=== PATIENT | female | born 1965 | race Caucasian/White ===

== ENCOUNTER 2017-03-14 06:55 | Day surgery (SDC) | payer BC ==
[~2017-03-14] VITALS: Ht 152.4 cm; Wt 73.9 kg
[~2017-03-14 06:55] MED LIST: CYCL5TAB PO; LIDOCAINE 1% (10mg/ml) 2ml SDV INJ ONE; LR 1,000 ML IV SCH; MELO-273 PO; TRAM50TA4 PO
--- OUTSIDE RECORDS SUMMARY | 2017-03-14 07:00 | XMS REPORT | Continuity of Care Document ---
Author Author Conrado COX, Geoffrey THOMAS Organization Ambulatory Address [address] [place] [address] [place] [address] Phone Care Team Providers Care Operater Name Role Phone Uche Gutierrez PP Unavailable Payers Payer name Insurance type Covered democrat ID Authorization(s) Unknown Problems Condition Effective Dates (start - stop) Clinical Status Constipation, unspecified - Improved Perimenopause - *Stable Well woman exam with routine gynecological exam - *Stable Unspecified sinusitis (chronic) - *Chronic Cough - *Chronic Sinusitis - *Chronic Sinusitis, Acute - *Acute Upper Respiratory Infection, Acute - *Acute Sinusitis, Acute - *Acute Allergic rhinitis, cause unspecified - Acute Exacerbation Constipation - *Chronic Dysuria - *Acute Other malaise and fatigue - *Acute Chronic rhinitis - *Chronic Family History Family Member Diagnosis Age At Onset Status Unknown Social History Social History Element Description Quantity Unknown Allergies, Adverse Reactions, Alerts Substance Reaction Severity Status Unknown Medications Medication Instructions Dosage Effective Dates (start - stop) Status Unknown Immunizations Vaccine Date Status Comments MMR completed - Completed reason: source unspecified Td (adult) completed - Completed reason: source unspecified Results Test Name Date and Time Measure Units Reference Range Abnormal Flag Comments Unknown Vital Signs Date / Time: Height Weight Pulse Rate Blood Pressure Temperature /13:04:00 61.00 in 172.00 lbs 118/76 mm[Hg] 97.8 F Procedures Procedure Date Unknown Encounters Encounter Location Date Patient Visit [facility] FM Patient Visit [facility] New OB Patient Visit [facility] Patient Visit [facility] Patient Visit [facility] Patient Visit [facility] Patient Visit [facility] Patient Visit Patient Visit [facility] Advance Directives Directive Effective Date Unknown
--- OUTSIDE RECORDS SUMMARY | 2017-03-14 07:00 | XMS REPORT | Referral Summary ---
Author Author [facility] Organization [facility] Address Unknown Phone Unavailable Care Team Providers Care Vice President Network Development Name Role Phone Helena Gutierrez Primary Care Physician [phone] Encounter [facility] [id number] Date(s): 06/05/15 - 06/05/15 [facility] [address] [address] ALINA Jones [id number] Discharge Diagnosis: Undifferentiated connective tissue disease Discharge Diagnosis: Encounter for long-term (current) use of non-steroidal anti -inflammatories Discharge Disposition: 01-Home or Self Care Attending Physician: Ariela Pearson MD Admitting Physician: Ariela Pearson MD Referring Physician: Uche Gutierrez MD Vital Signs Most recent to 1 oldest [Reference Range]: Peripheral Pulse 65 bpm Rate [60-100 bpm] (06/05/15 11:09 AM) Blood Pressure 137/86 mmHg [90-140/60-90 mmHg] (06/05/15 11:09 AM) Problem List Condition Effective Dates Status Health Status Informant Obesity(Confirmed) Active patient Sinus Active infections(Confirmed ) Undifferentiated Active connective tissue disease(Confirmed) Allergies, Adverse Reactions, Alerts No Known Medication Allergies Medications Mobic 7.5 mg oral tablet 1 tabs, Oral, BID, with food., # 60 tabs, 5 Refill(s), Pharmacy: [facility] #[id number], 1 tabs Oral BID,Instr:with food. Start Date: 12/19/14 Status: Ordered Results No data available for this section Immunizations Vaccine Date Refusal Reason tetanus/diphth/pertuss (Tdap) adult/adol 08/30/14 influenza virus vaccine, inactivated 08/30/14 measles/mumps/rubella virus vaccine 05/09/06 tetanus-diphth toxoids (Td) adult/adol 11/10/94 Procedures Procedure Date Related Diagnosis Body Site bunion corrective surgery Hernia repair Social History Social History Type Response Smoking Status Never smoker Assessment and Plan Extracted from: Title: Office Visit Note Author: Ariela Pearson MD Date: 06/05/15 Assessment/Plan 1.Undifferentiated connective tissue disease She is overall doing well. I discussed that she can take the meloxicam as needed. I reviewed potential use ofhydroxychloroquineifwe need to escalate her therapy. I reviewed the potential risks which may occur in association this medication including retinal toxicity. She does not believe that she needs to escalate therapy at this time. She willlet us know if she has any increased issues. 2.Encounter for long-term (current) use of non-steroidal anti-inflammatories Her labs have been stable. I will plan on repeating these when she is next seen in 6 months. Follow-up in 6 months or sooner if needed.
--- OUTSIDE RECORDS SUMMARY | 2017-03-14 07:00 | XMS REPORT | Referral Summary ---
Author Author [facility] Organization [facility] Address Unknown Phone Unavailable Care Team Providers Care Factory Maintenance Technician Name Role Phone Helena Gutierrez Primary Care Physician [phone] Encounter [facility] Date(s): 06/05/15 - 06/05/15 [facility] [address] [place] [address] ALINA Jones [id number] Discharge Diagnosis: Undifferentiated connective tissue disease Discharge [...] food., # 60 tabs, 5 Refill(s), Pharmacy: [facility] #[id number], 1 tabs Oral BID,Instr:with food. Start Date: [...]
--- OUTSIDE RECORDS SUMMARY | 2017-03-14 07:00 | XMS REPORT | Referral Summary ---
Author Author [facility] Organization [facility] Address Unknown Phone Unavailable Care Team Providers Care Supervisor Coffee Name Role Phone Helena Gutierrez Primary Care Physician [phone] Encounter [facility] Date(s): 06/05/15 - 06/05/15 [facility] [address] [place] [address] ALINA Jones [id number] Discharge Diagnosis: Undifferentiated connective tissue disease Discharge [...] food., # 60 tabs, 5 Refill(s), Pharmacy: [facility] #[id number], 1 tabs Oral BID,Instr:with food. Start Date: [...]
--- OUTSIDE RECORDS SUMMARY | 2017-03-14 07:00 | XMS REPORT | Referral Summary ---
Author Author [facility] Organization [facility] Address Unknown Phone Unavailable Care Team Providers Care Analog Ic Design Architect Name Role Phone Helena Gutierrez Primary Care Physician [phone] Encounter [facility] [id number] Date(s): 12/26/15 - 12/26/15 [facility] [address] [place] [address] ALINA Jones [id number] Discharge Diagnosis: Undifferentiated connective tissue disease Discharge Diagnosis: Patient takes NSAID (non-steroid anti-inflammatory drug) Discharge Disposition: 01-Home or Self Care Attending Physician: Ariela Pearson MD Admitting Physician: Ariela Pearson MD Referring Physician: Uche Gutierrez MD Vital Signs Most recent to 1 oldest [Reference Range]: Peripheral Pulse 71 bpm Rate [60-100 bpm] (12/26/15 9:26 AM) Blood Pressure 124/80 mmHg [90-140/60-90 mmHg] (12/26/15 9:26 AM) Problem List Condition Effective Dates Status Health Status Informant Obesity(Confirmed) Active patient Sinus Active infections(Confirmed ) Undifferentiated Active connective tissue disease(Confirmed) Allergies, Adverse Reactions, Alerts No Known Medication Allergies Medications Mobic 7.5 mg oral tablet 7.5 mg 1 tabs, Oral, BID, with food., # 60 tabs, 5 Refill(s), Pharmacy: [facility] #[id number], 1 tabs Oral BID,Instr:with food. Start Date: 12/26/15 Status: Ordered Results Hematology Most recent to 1 oldest [Reference Range]: WBC [4.8-10.8 4.9 10*3/uL 10*3/uL] (12/26/15 9:10 AM) RBC [4.00-5.20] 4.44 (12/26/15 9:10 AM) Hgb [12.0-16.0 13.8 gm/dL gm/dL] (12/26/15 9:10 AM) Hct [37.0-47.0 %] 41.3 % (12/26/15 9:10 AM) MCV [82.0-99.0 fL] 93.0 fL (12/26/15 9:10 AM) MCH [27.0-32.0 pg] 31.1 pg (12/26/15 9:10 AM) MCHC [32.0-36.0 33.4 gm/dL gm/dL] (12/26/15 9:10 AM) RDW [11.5-14.5 %] 12.5 % (12/26/15 9:10 AM) Platelet [150-400 373 10*3/uL 10*3/uL] (12/26/15 9:10 AM) MPV [8.8-14.8 fL] 9.2 fL (12/26/15 9:10 AM) Immature 0.2 % Granulocytes (12/26/15 9:10 AM) [0.0-1.0 %] Neutrophils [51-75 55 % %] (12/26/15 9:10 AM) Lymphocytes [20-46 30 % %] (12/26/15 9:10 AM) Monocytes [4-11 %] 9 % (12/26/15 9:10 AM) Eosinophils [0-4 %] 5 % *HI* (12/26/15 9:10 AM) Basophils [0-2 %] 1 % (12/26/15 9:10 AM) Neutro Absolute 2.70 10*3 [1.90-7.00 10*3] (12/26/15 9:10 AM) Lymph Absolute 1.47 10*3 [0.80-3.30 10*3] (12/26/15 9:10 AM) Orange Absolute 0.44 10*3 [0.30-1.00 10*3] (12/26/15 9:10 AM) Eos Absolute 0.23 10*3 [0.00-0.50 10*3] (12/26/15 9:10 AM) Baso Absolute 0.06 10*3 [0.00-0.20 10*3] (12/26/15 9:10 AM) Chemistry Most recent to 1 oldest [Reference Range]: Sodium Lvl [135-144 141 mEq/L mEq/L] (12/26/15 9:10 AM) Potassium Lvl 4.3 mEq/L [3.5-5.2 mEq/L] (12/26/15 9:10 AM) Chloride [99-111 105 mEq/L mEq/L] (12/26/15 9:10 AM) CO2 [22-31 mEq/L] 28 mEq/L (12/26/15 9:10 AM) AGAP [3-20] 8 (12/26/15 9:10 AM) BUN [10-20 mg/dL] 15 mg/dL (12/26/15 9:10 AM) Glucose Lvl [70-99 54 mg/dL mg/dL] *LOW* (12/26/15 9:10 AM) Creatinine Lvl 0.65 mg/dL [0.57-1.11 mg/dL] (12/26/15 9:10 AM) eGFR [>60 mL/min] >60 mL/min 1 (12/26/15 9:10 AM) Calcium Lvl 9.5 mg/dL [8.9-10.5 mg/dL] (12/26/15 9:10 AM) Albumin Lvl [3.5-5.0 4.2 gm/dL gm/dL] (12/26/15 9:10 AM) Total Protein 6.6 gm/dL [6.4-8.3 gm/dL] (12/26/15 9:10 AM) Globulin [1.8-4.0 2.4 gm/dL gm/dL] (12/26/15 9:10 AM) ALT [0-55 U/L] 20 U/L (12/26/15 9:10 AM) AST [5-34 U/L] 20 U/L (12/26/15 9:10 AM) Alk Phos [40-150 95 U/L U/L] (12/26/15 9:10 AM) Bili Total [0.2-1.2 0.5 mg/dL mg/dL] (12/26/15 9:10 AM) 1Result Comment: Multiply eGFR results by 1.21 for race. Immunizations Vaccine Date Refusal Reason tetanus/diphth/pertuss (Tdap) adult/adol 08/30/14 influenza virus vaccine, inactivated 08/30/14 measles/mumps/rubella virus vaccine 05/09/06 tetanus-diphth toxoids (Td) adult/adol 11/10/94 Procedures Procedure Date Related Diagnosis Body Site Collection of venous blood by venipuncture 12/26/15 bunion corrective surgery Hernia repair Social History Social History Type Response Smoking Status Never smoker Assessment and Plan Extracted from: Title: Office Visit Note Author: Ariela Pearson MD Date: 12/26/15 Assessment/Plan 1.Undifferentiated connective tissue disease She has mild joint stiffness in the morning but otherwise she has been doing well. I will check her kidney, blood counts for monitoring and we will continue the meloxicam. Ordered: C-Reactive Protein (CRP) CBC w/ Differential Comprehensive Metabolic Panel 2.Patient takes NSAID (non-steroid anti-inflammatory drug) I will check liver tests, kidney tests and blood counts at this time. Follow up in 6 mths or sooner if needed. Ordered: C-Reactive Protein (CRP) CBC w/ Differential Comprehensive Metabolic Panel
--- OUTSIDE RECORDS SUMMARY | 2017-03-14 07:00 | XMS REPORT | Referral Summary ---
Author Author [facility] Organization [facility] Address Unknown Phone Unavailable Care Team Providers Care Certified Adaptive Physical Educator Name Role Phone Helena Gutierrez Primary Care Physician [phone] Encounter [facility] [id number] Date(s): 12/24/16 - 12/24/16 [facility] [address] [place] [address] [place] Jones [id number] Discharge Diagnosis: Patient takes NSAID (non-steroid anti-inflammatory drug) Discharge Diagnosis: Lower back pain Discharge Diagnosis: Undifferentiated connective tissue disease Discharge Disposition: 01-Home or Self Care Attending Physician: Ariela Pearson MD Admitting Physician: Ariela Pearson MD Referring Physician: Uche Gutierrez MD Vital Signs Most recent to 1 oldest [Reference Range]: Peripheral Pulse 62 bpm Rate [60-100 bpm] (12/24/16 10:02 AM) Blood Pressure 149/83 mmHg [90-140/60-90 mmHg] *HI* (12/24/16 10:02 AM) Problem List Condition Effective Dates Status Health Status Informant Obesity(Confirmed) Active patient Sinus Active infections(Confirmed ) Undifferentiated Active connective tissue disease(Confirmed) Allergies, Adverse Reactions, Alerts No Known Medication Allergies Medications Mobic 7.5 mg oral tablet 7.5 mg 1 tabs, Oral, BID, with food., # 60 tabs, 5 Refill(s), Pharmacy: [id number], 1 tabs Oral BID,Instr:with food. Start Date: 12/24/16 Status: Ordered traMADol 50 mg oral tablet 50 mg 1 tabs, Oral, BID, as needed for pain, # 60 tabs, 2 Refill(s) Start Date: 12/24/16 Stop Date: 12/17/19 Status: Ordered Results Hematology Most recent to 1 oldest [Reference Range]: WBC [4.8-10.8 5.3 10*3/uL 10*3/uL] (12/24/16 10:25 AM) RBC [4.00-5.20] 4.29 (12/24/16 10:25 AM) Hgb [12.0-16.0 13.2 gm/dL gm/dL] (12/24/16 10:25 AM) Hct [37.0-47.0 %] 40.6 % (12/24/16 10:25 AM) MCV [82.0-99.0 fL] 94.6 fL (12/24/16 10:25 AM) MCH [27.0-32.0 pg] 30.8 pg (12/24/16 10:25 AM) MCHC [32.0-36.0 32.5 gm/dL gm/dL] (12/24/16 10:25 AM) RDW [11.5-14.5 %] 12.0 % (12/24/16 10:25 AM) Platelet [150-400 338 10*3/uL 10*3/uL] (12/24/16 10:25 AM) MPV [8.8-14.8 fL] 9.2 fL (12/24/16 10:25 AM) Immature 0.2 % Granulocytes (12/24/16 10:25 AM) [0.0-1.0 %] Neutrophils [51-75 52 % %] (12/24/16 10:25 AM) Lymphocytes [20-46 32 % %] (12/24/16 10:25 AM) Monocytes [4-11 %] 10 % (12/24/16 10:25 AM) Eosinophils [0-4 %] 5 % *HI* (12/24/16 10:25 AM) Basophils [0-2 %] 1 % (12/24/16 10:25 AM) Neutro Absolute 2.74 [1.90-7.00] (12/24/16 10:25 AM) Lymph Absolute 1.67 [0.80-3.30] (12/24/16 10:25 AM) Andrews Absolute 0.53 [0.30-1.00] (12/24/16 10:25 AM) Eos Absolute 0.28 [0.00-0.50] (12/24/16 10:25 AM) Baso Absolute 0.05 [0.00-0.20] (12/24/16 10:25 AM) Chemistry Most recent to 1 oldest [Reference Range]: Sodium Lvl [135-144 139 mEq/L mEq/L] (12/24/16 10:25 AM) Potassium Lvl 4.3 mEq/L [3.5-5.2 mEq/L] (12/24/16 10:25 AM) Chloride [99-111 104 mEq/L mEq/L] (12/24/16 10:25 AM) CO2 [22-31 mEq/L] 27 mEq/L (12/24/16 10:25 AM) AGAP [3-20] 8 (12/24/16 10:25 AM) BUN [10-20 mg/dL] 15 mg/dL (12/24/16 10:25 AM) Glucose Lvl [70-99 80 mg/dL mg/dL] (12/24/16 10:25 AM) Creatinine Lvl 0.63 mg/dL [0.57-1.11 mg/dL] (12/24/16 10:25 AM) eGFR [>60 mL/min] >60 mL/min 1 (12/24/16 10:25 AM) Calcium Lvl 9.2 mg/dL [8.9-10.5 mg/dL] (12/24/16 10:25 AM) Albumin Lvl [3.5-5.0 4.2 gm/dL gm/dL] (12/24/16 10:25 AM) Total Protein 6.2 gm/dL [6.1-7.7 gm/dL] (12/24/16 10:25 AM) Globulin [1.8-4.0 2.0 gm/dL gm/dL] (12/24/16 10:25 AM) ALT [0-55 U/L] 17 U/L (12/24/16 10:25 AM) AST [5-34 U/L] 18 U/L (12/24/16 10:25 AM) Alk Phos [40-150 75 U/L U/L] (12/24/16 10:25 AM) Bili Total [0.2-1.2 0.6 mg/dL mg/dL] (12/24/16 10:25 AM) 1Result Comment: Multiply eGFR results by 1.21 for race. Urinalysis Most recent to 1 oldest [Reference Range]: UA Color Yellow (12/24/16 10:30 AM) UA Appear Clear (12/24/16 10:30 AM) UA pH [5.0-8.0] 7.5 (12/24/16 10:30 AM) UA Leuk Est Negative [Negative] (12/24/16 10:30 AM) UA Nitrite Negative [Negative] (12/24/16 10:30 AM) UA Protein Negative [Negative] (12/24/16 10:30 AM) UA Glucose Negative [Negative] (12/24/16 10:30 AM) UA Ketones Negative [Negative] (12/24/16 10:30 AM) UA Urobilinogen 0.2 mg/dL [<1.0 mg/dL] (12/24/16 10:30 AM) UA Bili [Negative] Negative (12/24/16 10:30 AM) UA Blood [Negative] Negative (12/24/16 10:30 AM) UA Spec Grav 1.009 [1.003-1.030] (12/24/16 10:30 AM) Type Clean Catch (12/24/16 10:30 AM) Immunizations Given and Recorded Vaccine Date Status Refusal Reason tetanus/diphth/pertuss (Tdap) adult/adol 08/30/14 Given influenza virus vaccine, inactivated 08/30/14 Recorded measles/mumps/rubella virus vaccine 05/09/06 Given tetanus-diphth toxoids (Td) adult/adol 11/10/94 Given Procedures Procedure Date Related Diagnosis Body Site Collection of venous blood by venipuncture 12/24/16 bunion corrective surgery Hernia repair Social History Social History Type Response Smoking Status Never smoker Assessment and Plan Extracted from: Title: Ambulatory Patient Education Author: Ariela Pearson MD Date: Musculoskeletal Back Injury Prevention Back injuries can be very painful. They can also be difficult to heal. After having one back injury, you are more likely to injure your back again. It is important to learn how to avoid injuring or re-injuring your back. The following tips can help you to prevent a back injury. WHAT SHOULD I KNOW ABOUT PHYSICAL FITNESS? Exercise for 30 minutes per day on most days of the week or as told by your doctor. Make sure to: Do aerobic exercises, such as walking, jogging, biking, or swimming. Do exercises that increase balance and strength, such as josselyn chi and yoga. Do stretching exercises. This helps with flexibility. Try to develop strong belly (abdominal) muscles. Your belly muscles help to support your back. Stay at a healthy weight. This helps to decrease your risk of a back injury. WHAT SHOULD I KNOW ABOUT MY DIET? Talk with your doctor about your overall diet. Take supplements and vitamins only as told by your doctor. Talk with your doctor about how much calcium and vitamin D you need each day. These nutrients help to prevent weakening of the bones (osteoporosis). Include good sources of calcium in your diet, such as: Dairy products. Green leafy vegetables. Products that have had calcium added to them (fortified). Include good sources of vitamin D in your diet, such as: Milk. Foods that have had vitamin D added to them. WHAT SHOULD I KNOW ABOUT MY POSTURE? Sit up straight and stand up straight. Avoid leaning forward when you sit or hunching over when you stand. Choose chairs that have good low-back (lumbar) support. If you work at a desk, sit close to it so you do not need to lean over. Keep your chin tucked in. Keep your neck drawn back. Keep your elbows bent so your arms look like the letter "L" (right angle). Sit high and close to the steering wheel when you drive. Add a low-back support to your car seat, if needed. Avoid sitting or standing in one position for very long. Take breaks to get up, stretch, and walk around at least one time every hour. Take breaks every hour if you are driving for long periods of time. Sleep on your side with your knees slightly bent, or sleep on your back with a pillow under your knees. Do not lie on the front of your body to sleep. WHAT SHOULD I KNOW ABOUT LIFTING, TWISTING, AND REACHING Lifting and Heavy Lifting Avoid heavy lifting, especially lifting over and over again. If you must do heavy lifting: Stretch before lifting. Work slowly. Rest between lifts. Use a tool such as a cart or a vinod to move objects if one is available. Make several small trips instead of carrying one heavy load. Ask for help when you need it, especially when moving big objects. Follow these steps when lifting: Stand with your feet shoulder-width apart. Get as close to the object as you can. Do not picker operator a heavy object that is far from your body. Use handles or lifting straps if they are available. Bend at your knees. Squat down, but keep your heels off the floor. Keep your shoulders back. Keep your chin tucked in. Keep your back straight. Lift the object slowly while you tighten the muscles in your legs, belly , and butt. Keep the object as close to the center of your body as possible. Follow these steps when putting down a heavy load: Stand with your feet shoulder-width apart. Lower the object slowly while you tighten the muscles in your legs, belly , and butt. Keep the object as close to the center of your body as possible. Keep your shoulders back. Keep your chin tucked in. Keep your back straight. Bend at your knees. Squat down, but keep your heels off the floor. Use handles or lifting straps if they are available. Twisting and Reaching Avoid lifting heavy objects above your waist. Do not twist at your waist while you are lifting or carrying a load. If you need to turn, move your feet. Do not bend over without bending at your knees. Avoid reaching over your head, across a table, or for an object on a high surface. WHAT ARE SOME OTHER TIPS? Avoid wet floors and icy ground. Keep sidewalks clear of ice to prevent falls. Do not sleep on a mattress that is too soft or too hard. Keep items that you use often within easy reach. Put heavier objects on shelves at waist level, and put city route driver objects on lower or higher shelves. Find ways to lower your stress, such as: Exercise. Massage. Relaxation techniques. Talk with your doctor if you feel anxious or depressed. These conditions can make back pain worse. Wear flat heel shoes with cushioned soles. Avoid making quick (sudden) movements. Use both shoulder straps when carrying a backpack. Do not use any tobacco products, including cigarettes, chewing tobacco, or electronic cigarettes. If you need help quitting, ask your doctor. This information is not intended to replace advice given to you by your health care provider. Make sure you discuss any questions you have with your health care provider. Document Released: 05/02/2009 Document Revised: 03/30/2016 Document Reviewed: [employer] Patient Education 2016 [employer]. Preventive Medicine Back Exercises Back exercises help treat and prevent back injuries. The goal is to increase your strength in your belly (abdominal) and back muscles. These exercises can also help with flexibility. Start these exercises when told by your doctor. HOME CARE Back exercises include: Pelvic Tilt. Lie on your back with your knees bent. Tilt your pelvis until the lower part of your back is against the floor. Hold this position 5 to 10 sec. Repeat this exercise 5 to 10 times. Knee to Chest. Pull 1 knee up against your chest and hold for 20 to 30 seconds. Repeat this with the other knee. This may be done with the other leg straight or bent, whichever feels better. Then, pull both knees up against your chest. Sit-Ups or Curl-Ups. Bend your knees 90 degrees. Start with tilting your pelvis, and do a partial, slow sit-up. Only lift your upper half 30 to 45 degrees off the floor. Take at least 2 to 3 seonds for each sit-up. Do not do sit-ups with your knees out straight. If partial sit-ups are difficult, simply do the above but with only tightening your belly (abdominal) muscles and holding it as told. Hip-Lift. Lie on your back with your knees flexed 90 degrees. Push down with your feet and shoulders as you raise your hips 2 inches off the floor. Hold for 10 seconds, repeat 5 to 10 times. Back Arches. Lie on your stomach. Prop yourself up on bent elbows. Slowly press on your hands, causing an arch in your low back. Repeat 3 to 5 times. Shoulder-Lifts. Lie face down with arms beside your body. Keep hips and belly pressed to floor as you slowly lift your head and shoulders off the floor. Do not overdo your exercises. Be careful in the beginning. Exercises may cause you some mild back discomfort. If the pain lasts for more than 15 minutes, stop the exercises until you see your doctor. Improvement with exercise for back problems is slow. This information is not intended to replace advice given to you by your health care provider. Make sure you discuss any questions you have with your health care provider. Document Released: 12/17/2011 Document Revised: 02/05/2013 Document Reviewed: [employer] Interactive Patient Education 2016 [employer] No follow up information was provided. Extracted from: Title: Office Visit Note Author: Ariela Pearson MD Date: 12/24/16 Assessment/Plan 1.Undifferentiated connective tissue disease She appears overall to be stable. I will check her blood counts, kidney function liver tests. I will also check a urinalysis. Continue the meloxicam. I advised her notto use naproxenoribuprofen in association with the meloxicam. She can use acetaminophen Ordered: C-Reactive Protein (CRP) CBC w/ Differential Comprehensive Metabolic Panel Urinalysis with Culture if Indicated 2.Patient takes NSAID (non-steroid anti-inflammatory drug) I will check a liver tests and kidney function tests today. Ordered: C-Reactive Protein (CRP) CBC w/ Differential Comprehensive Metabolic Panel Urinalysis with Culture if Indicated 3.Lower back pain She was given a handout on exercisesand also protecting her back. I will give her tramadol to use when she has worsening pain. Follow-up in6 months or sooner if needed.
--- OUTSIDE RECORDS SUMMARY | 2017-03-14 07:00 | XMS REPORT | Referral Summary ---
Author Author [facility] Organization [facility] Address Unknown Phone Unavailable Care Team Providers Care Horseshoer Name Role Phone Helena Gutierrez Primary Care Physician [phone] Encounter [facility] [id number] Date(s): 01/19/17 - 01/19/17 [facility], [address] [place] [address]- Discharge Disposition: 01-Home or Self Care Attending Physician: Uche Gutierrez MD Admitting Physician: Uche Gutierrez MD Vital Signs Most recent to 1 oldest [Reference Range]: Temperature Tympanic 36.5 degC [36.6-38.1 degC] *LOW* (01/19/17 8:58 AM) Blood Pressure 126/76 mmHg [90-140/60-90 mmHg] (01/19/17 8:58 AM) Problem List Condition Effective Dates Status Health Status Informant Obesity(Confirmed) Active patient Sinus Active infections(Confirmed ) Undifferentiated Active connective tissue disease(Confirmed) Allergies, Adverse Reactions, Alerts No Known Medication Allergies Medications cyclobenzaprine 5 mg oral tablet 5 mg 1 tabs, Oral, BID, # 60 tabs, 0 Refill(s), Pharmacy: [id number] , 1 tabs Oral BID Start Date: 01/19/17 Status: Ordered Mobic 7.5 mg oral tablet 7.5 mg 1 tabs, Oral, BID, with food., # 60 tabs, 5 Refill(s), Pharmacy: [id number], 1 tabs Oral BID,Instr:with food. Start Date: 12/24/16 Status: Ordered traMADol 50 mg oral tablet 50 mg 1 tabs, Oral, BID, as needed for pain, # 60 tabs, 2 Refill(s) Start Date: 12/24/16 Stop Date: 12/17/19 Status: Ordered Results No data available for this section Immunizations Given and Recorded Vaccine Date Status Refusal Reason tetanus/diphth/pertuss (Tdap) adult/adol 08/30/14 Given influenza virus vaccine, inactivated 08/30/14 Recorded measles/mumps/rubella virus vaccine 05/09/06 Given tetanus-diphth toxoids (Td) adult/adol 11/10/94 Given Procedures Procedure Date Related Diagnosis Body Site bunion corrective surgery Hernia repair Social History Social History Type Response Smoking Status Never smoker Assessment and Plan Extracted from: Title: Ambulatory Patient Education Author: Uche Gutierrez MD Date: Musculoskeletal Facet Syndrome Facet syndrome is a condition where injury to the small joints between the bones in the spine (facet joints) causes back pain. Over rotation (twisting) or arching (extension) of the back may injure the joints or the soft disks between the spinal bones. Such injuries result in excessive motion of the facet joint. This causes the cartilage covering the facet joint to wear down. That places pressure on nerves, as they exit the spinal cord. SYMPTOMS Chronic dull ache in the low back, that gets worse with over-extension and rotation. Pain in the low back, buttocks, hip, and sometimes leg. Sometimes, stiffness of the low back. CAUSES Facet syndrome is often caused by repeated or over rotation, over-extension, or extension with rotation of the back. These motions cause injury to the cartilage covering the facet joints. This places pressure on the spinal nerves. RISK INCREASES WITH: Sports that can cause over-extension of the back, with rotation or repeatedly (golf, football, gymnastics, diving, weight-lifting, dancing, rifle shooting, wrestling, tennis, swimming, volleyball, track and field, rugby, other contact sports). Poor back strength and flexibility. Poor exercise technique. PREVENTION Learn and use proper technique. Warm up and stretch properly before activity. Maintain physical fitness: Back and hamstring flexibility. Back muscle strength and endurance. Cardiovascular fitness. PROGNOSIS This condition is often resolved with proper non-surgical treatment. RELATED COMPLICATIONS Recurring symptoms, resulting in a chronic problem. Delayed healing, especially if sports are resumed too soon. Prolonged impairment. Narrowed canal for the spinal cord, due to bone spurs (bumps) resulting from chronic erosion of the facet joints (spinal stenosis). TREATMENT Treatment first involves stopping activities that aggravate your symptoms. Ice and medicines may be used to reduce pain and inflammation. Your caregiver may advise strength and stretching activities, to be completed at home or with a therapist. You may be referred to a physical therapist for further treatment, including: ultrasound, manual adjustments, transcutaneous electronic nerve stimulation (TENS). Surgery is rarely needed. It is reserved for athletes with persistent pain, despite 6 to 12 months of proper non-surgical treatment. Surgery involves joining (fusing) two bones of the spinal column, to stop motion between the facet joint and disk. MEDICATION If pain medicine is needed, nonsteroidal anti-inflammatory medicines ( aspirin and ibuprofen), or other minor pain relievers (acetaminophen), are often advised. Do not take pain medicine for 7 days before surgery. Stronger pain relievers may be prescribed. Use only as directed and only as much as you need. HEAT AND COLD Cold treatment (icing) relieves pain and reduces inflammation. Cold treatment should be applied for 10 to 15 minutes every 2 to 3 hours, and immediately after activity that aggravates your symptoms. Use ice packs or an ice massage. Heat treatment may be used before performing stretching and strengthening activities advised by your caregiver, physical therapist, or agency trainer. Use a heat pack or a warm water soak. SEEK MEDICAL CARE IF: Symptoms get worse or do not improve in 2 to 4 weeks, despite treatment. You develop numbness, weakness, or loss of bladder or bowel function. New, unexplained symptoms develop. (Drugs used in treatment may produce side effects.) This information is not intended to replace advice given to you by your health care provider. Make sure you discuss any questions you have with your health care provider. Document Released: 11/14/2006 Document Revised: 02/05/2013 Document Reviewed: [employer] Interactive Patient Education 2016 [employer] Radicular Pain Radicular pain in either the arm or leg is usually from a bulging or herniated disk in the spine. A piece of the herniated disk may press against the nerves as the nerves exit the spine. This causes pain which is felt at the tips of the nerves down the arm or leg. Other causes of radicular pain may include: Fractures. Heart disease. Cancer. An abnormal and usually degenerative state of the nervous system or nerves (neuropathy). Diagnosis may require CT or MRI scanning to determine the primary cause. Nerves that start at the neck (nerve roots) may cause radicular pain in the outer shoulder and arm. It can spread down to the thumb and fingers. The symptoms vary depending on which nerve root has been affected. In most cases radicular pain improves with conservative treatment. Neck problems may require physical therapy, a neck collar, or cervical traction. Treatment may take many weeks, and surgery may be considered if the symptoms do not improve. Conservative treatment is also recommended for sciatica. Sciatica causes pain to radiate from the lower back or buttock area down the leg into the foot. Often there is a history of back problems. Most patients with sciatica are better after 2 to 4 weeks of rest and other supportive care. Short term bed rest can reduce the disk pressure considerably. Sitting, however, is not a good position since this increases the pressure on the disk. You should avoid bending , lifting, and all other activities which make the problem worse. Traction can be used in severe cases. Surgery is usually reserved for patients who do not improve within the first months of treatment. Only take qsae-pih-sbelizf or prescription medicines for pain, discomfort, or fever as directed by your caregiver. Narcotics and muscle relaxants may help by relieving more severe pain and spasm and by providing mild sedation. Cold or massage can give significant relief. Spinal manipulation is not recommended. It can increase the degree of disc protrusion. Epidural steroid injections are often effective treatment for radicular pain. These injections deliver medicine to the spinal nerve in the space between the protective covering of the spinal cord and back bones (vertebrae). Your caregiver can give you more information about steroid injections. These injections are most effective when given within two weeks of the onset of pain. You should see your caregiver for follow up care as recommended. A program for neck and back injury rehabilitation with stretching and strengthening exercises is an important part of management. SEEK IMMEDIATE MEDICAL CARE IF: You develop increased pain, weakness, or numbness in your arm or leg. You develop difficulty with bladder or bowel control. You develop abdominal pain. This information is not intended to replace advice given to you by your health care provider. Make sure you discuss any questions you have with your health care provider. Document Released: 12/22/2005 Document Revised: 12/05/2015 Document Reviewed: [employer] Interactive Patient Education 2016 [employer] No follow up information was provided. Extracted from: Title: Office Visit Note Author: Uche Gutierrez MD Date: 01/19/17 Assessment/Plan Chronic back pain Involving the SI joint. The x-rays were unremarkable. Rx for Flexeril and Tramadol and continue the Mobic. Hot Packs and a abdominal binder while working. Ordered: XR Spine Lumbosacral 2 or 3 Views
--- OUTSIDE RECORDS SUMMARY | 2017-03-14 07:00 | XMS REPORT | Referral Summary ---
Author Author [facility] Organization [facility] Address Unknown Phone Unavailable Care Team Providers Care Critical Care Rn Name Role Phone Helena Gutierrez Primary Care Physician [phone] Encounter [facility] Date(s): 06/05/15 - 06/05/15 [facility] [address] [place] [address] [place] [id number] Discharge Diagnosis: Undifferentiated connective tissue disease Discharge [...] food., # 60 tabs, 5 Refill(s), Pharmacy: [facility][id number], 1 tabs Oral BID,Instr:with food. Start Date: [...]
--- OUTSIDE RECORDS SUMMARY | 2017-03-14 07:00 | XMS REPORT | Continuity of Care Document ---
Author Author [facility] Address Unknown Phone Unavailable Care Team Providers Care Hand Hardener Name Role Phone Matt Uche HIEN Unavailable Payers Payer name Insurance type Covered green party ID Authorization(s) Unknown Problems Condition Effective Dates (start - stop) Clinical Status Constipation - *Chronic Dysuria - *Acute Other malaise and fatigue - *Acute Perimenopause - *Stable Well woman exam with routine gynecological exam - *Stable Unspecified sinusitis (chronic) - *Chronic Cough - *Chronic Sinusitis - *Chronic Sinusitis, Acute - *Acute Upper Respiratory Infection, Acute - *Acute Constipation, unspecified - Improved Sinusitis, Acute - *Acute Allergic rhinitis, cause unspecified - Acute Exacerbation Chronic rhinitis - *Chronic Family History Family [...] Measure Units Reference Range Abnormal Flag Comments Panel Description: CBC WBC 15:32:00 6.1 K/uL 4.8-10.8 RBC 15:32:00 4.38 M/uL 4.00-5.20 HGB 15:32:00 13.6 g/dl 12.0-16.0 HCT 15:32:00 41.4 % 37.0-47.0 MCV 15:32:00 94.5 fL 82.0-99.0 MCH 15:32:00 31.1 pg 27.0-32.0 MCHC 15:32:00 32.9 g/dL 32.0-36.0 RDW 15:32:00 12.5 % 11.5-14.5 MPV 15:32:00 9.4 fL 8.8-14.8 Platelet Count 15:32:00 388 K/uL 150-400 Immature Granulocytes 15:32:00 0.0 % 0.0-1.0 Absolute Neutrophils 15:32:00 3.49 THOUS 1.90-7.00 Absolute Lymphocytes 15:32:00 1.71 THOUS 0.80-3.30 Absolute Monocytes 15:32:00 0.55 THOUS 0.30-1.00 Absolute Eosinophils 15:32:00 0.24 THOUS 0.00-0.50 Absolute Basophils 15:32:00 0.06 THOUS 0.00-0.20 Neutrophils 15:32:00 58 % 51-75 Lymphocytes 15:32:00 28 % 20-46 Monocytes 15:32:00 9 % 4-11 Eosinophils 15:32:00 4 % 0-4 Basophils 15:32:00 1 % 0-2 Testing performed at [facility] Reference Lab [address] [place] [address] Crane Chaser Guanaco Jean MD Panel Description: Chemistry Profile Glucose 15:32:00 100 mg/dL 70-99 H BUN 15:32:00 15 mg/dL 10-20 Creatinine 15:32:00 0.73 mg/dL 0.57-1.11 Calcium 15:32:00 9.7 mg/dL 8.9-10.5 Sodium 15:32:00 141 mEq/L 135-144 Potassium 15:32:00 4.1 mEq/L 3.5-5.2 Chloride 15:32:00 105 mEq/L 99-111 CO2 15:32:00 27 mEq/L 22-31 Albumin 15:32:00 4.3 g/dL 3.5-5.0 Bilirubin Total 15:32:00 0.4 mg/dL 0.2-1.2 Alkaline Phosphatase 15:32:00 82 U/L 40-150 Protein 15:32:00 6.9 g/dL 6.4-8.3 ALT (SGPT) 15:32:00 18 U/L 0-55 AST (SGOT) 15:32:00 20 U/L 5-34 Anion Gap 15:32:00 9 3-20 Globulin 15:32:00 2.6 g/dL 1.8-4.0 Testing performed at [facility] Reference Lab [address] [place] [address] Crane Chaser Guanaco Jean MD Panel Description: Lipid Profile-[facility] Cholesterol 15:32:00 256 mg/dL 0-199 H Triglycerides 15:32:00 291 mg/dL 0-149 H HDL Cholesterol 15:32:00 73 mg/dL 40-84 LDL Cholesterol 15:32:00 125 mg/dL 0-130 VLDL Cholesterol 15:32:00 58 mg/dL 0-28 H Cardiac Risk 15:32:00 3.5 0.0-5.0 Testing performed at [facility] Reference Lab [address] [place] [address] Crane Chaser Guanaco Jean MD Panel Description: Non-HDL Cholesterol-[facility] Non-HDL Cholesterol 15:32:00 183 mg/dL 0-159 H Testing performed at [facility] Reference Lab [address] [place] [address] Crane Chaser Guanaco Jean MD Panel Description: TSH-[facility] TSH 15:32:00 1.31 uIU/mL 0.35-4.94 Testing performed at [facility] Reference Lab [address] [place] [address] Crane Chaser Guanaco Jean MD Panel Description: EGFR-AMS eGFR 15:32:00 >60 mL/min >60 Multiply eGFR results by 1.21 for race.Testing performed at [facility] Reference Lab [facility] [place] [id number] Crane Chaser Guanaco Jean MD Panel Description: Urinalysis with Micro-Reflex Culture & Sens if Ind-AMS Appearance 15:32:00 Clear Color 15:32:00 Yellow Glucose, Urine 15:32:00 Negative Negative Ketones 15:32:00 Negative Negative Blood 15:32:00 Trace Negative A Protein 15:32:00 Negative Negative Nitrites 15:32:00 Negative Negative Bilirubin 15:32:00 Negative Negative Specific Crocker 15:32:00 1.016 1.003-1.03 pH 15:32:00 5.5 5.0-8.0 Urobilinogen 15:32:00 0.2 mg/dL <1.0 Leukocyte Esterase 15:32:00 Negative Negative RBC, Urine 15:32:00 0-2 /HPF 0-2 Epithelial Cells 15:32:00 0-2 /HPF Microscop. Exam Perf. 15:32:00 performed Testing performed at [facility] Reference Lab [address] [place] [address] Crane Chaser Guanaco Jean MD Vital Signs Date / Time: Height Weight Pulse Rate Blood Pressure Temperature /14:55:00 61.00 in 171.00 lbs 128/82 mm[Hg] 97.0 F Procedures Procedure Date Unknown Encounters Encounter Location Date Patient Visit [facility] FM Patient Visit [facility] OB Patient Visit [facility] Patient Visit [facility] FM Patient Visit [facility] FM Patient Visit [facility] Patient Visit [facility] Patient Visit Patient Visit [facility] Advance Directives Directive Effective Date Unknown
--- OUTSIDE RECORDS SUMMARY | 2017-03-14 07:00 | XMS REPORT | Referral Summary ---
Author Organization Unknown Address Unknown Phone Unavailable Care Team Providers Care Homemaker Companion Name Role Phone Helena Gutierrez Primary Care Physician [phone] Encounter [facility] [id number] Date(s): 12/19/14 - 12/19/14 [facility], [place], Rheumatology [address] [place] [address] ALINA Jones [id number]- Discharge Diagnosis: Undifferentiated connective tissue disease Discharge Diagnosis: Encounter for long-term use of non-steroidal anti- inflammatory medication Discharge Disposition: Home or Self Care Attending Physician: Ariela Pearson MD Admitting Physician: Ariela Pearson MD Referring Physician: Uche Gutierrez MD Vital Signs Most recent to 1 oldest [Reference Range]: Peripheral Pulse 69 bpm Rate [60-100 bpm] (12/19/14 3:13 PM) Blood Pressure 153/93 mmHg [90-140/60-90 mmHg] *HI* (12/19/14 3:13 PM) Problem List Condition Effective Dates Status Health Status Informant Obesity(Confirmed) Active patient Sinus Active infections(Confirmed ) Allergies, Adverse Reactions, Alerts No Known Medication Allergies Medications Mobic 7.5 mg oral tablet 1 tabs, Oral, BID, with food., # 60 tabs, 5 Refill(s), Pharmacy: [facility] #[id number], 1 tabs Oral BID,Instr:with food. Special Instructions: with food. Start Date: 12/19/14 Status: Ordered Results Hematology Most recent to 1 oldest [Reference Range]: WBC [4.8-10.8 K/uL] 6.7 K/uL (12/19/14 3:32 PM) RBC [4.00-5.20 M/uL] 4.34 M/uL (12/19/14 3:32 PM) Hgb [12.0-16.0 13.6 gm/dL gm/dL] (12/19/14 3:32 PM) Hct [37.0-47.0 %] 40.3 % (12/19/14 3:32 PM) MCV [82.0-99.0 fL] 92.9 fL (12/19/14 3:32 PM) MCH [27.0-32.0 pg] 31.3 pg (12/19/14 3:32 PM) MCHC [32.0-36.0 33.7 gm/dL gm/dL] (12/19/14 3:32 PM) RDW [11.5-14.5 %] 12.6 % (12/19/14 3:32 PM) Platelet [150-400 410 K/uL K/uL] *HI* (12/19/14 3:32 PM) MPV [8.8-14.8 fL] 9.2 fL (12/19/14 3:32 PM) Immature 0.0 % Granulocytes (12/19/14 3:32 PM) [0.0-1.0 %] Neutrophils [51-75 54 % %] (12/19/14 3:32 PM) Lymphocytes [20-46 31 % %] (12/19/14 3:32 PM) Monocytes [4-11 %] 10 % (12/19/14 3:32 PM) Eosinophils [0-4 %] 4 % (12/19/14 3:32 PM) Basophils [0-2 %] 1 % (12/19/14 3:32 PM) Neutro Absolute 3.61 THOUS [1.90-7.00 THOUS] (12/19/14 3:32 PM) Lymph Absolute 2.10 THOUS [0.80-3.30 THOUS] (12/19/14 3:32 PM) [place] Absolute 0.68 THOUS [0.30-1.00 THOUS] (12/19/14 3:32 PM) Eos Absolute 0.26 THOUS [0.00-0.50 THOUS] (12/19/14 3:32 PM) Baso Absolute 0.05 THOUS [0.00-0.20 THOUS] (12/19/14 3:32 PM) Chemistry Most recent to 1 oldest [Reference Range]: Sodium Lvl [135-144 142 mEq/L mEq/L] (12/19/14 3:32 PM) Potassium Lvl 4.2 mEq/L [3.5-5.2 mEq/L] (12/19/14 3:32 PM) Chloride [99-111 108 mEq/L mEq/L] (12/19/14 3:32 PM) CO2 [22-31 mEq/L] 25 mEq/L (12/19/14 3:32 PM) AGAP [3-20] 9 (12/19/14 3:32 PM) BUN [10-20 mg/dL] 14 mg/dL (12/19/14 3:32 PM) Glucose Lvl [70-99 96 mg/dL mg/dL] (12/19/14 3:32 PM) Creatinine Lvl 0.75 mg/dL [0.57-1.11 mg/dL] (12/19/14 3:32 PM) eGFR [>60 mL/min] >60 mL/min 1 (12/19/14 3:32 PM) Calcium Lvl 9.9 mg/dL [8.9-10.5 mg/dL] (12/19/14 3:32 PM) Albumin Lvl [3.5-5.0 4.5 gm/dL gm/dL] (12/19/14 3:32 PM) Total Protein 7.1 gm/dL [6.4-8.3 gm/dL] (12/19/14 3:32 PM) Globulin [1.8-4.0 2.6 gm/dL gm/dL] (12/19/14 3:32 PM) ALT [0-55 unit/L] 22 unit/L (12/19/14 3:32 PM) AST [5-34 unit/L] 23 unit/L (12/19/14 3:32 PM) Alk Phos [40-150 92 unit/L unit/L] (12/19/14 3:32 PM) Bili Total [0.2-1.2 0.4 mg/dL mg/dL] (12/19/14 3:32 PM) 1Result Comment: Multiply eGFR results by 1.21 for race. Urinalysis Most recent to 1 oldest [Reference Range]: UA Color Yellow (12/19/14 3:32 PM) UA Appear Clear (12/19/14 3:32 PM) UA pH [5.0-8.0] 6.5 (12/19/14 3:32 PM) UA Leuk Est Negative [Negative] (12/19/14 3:32 PM) UA Nitrite Negative [Negative] (12/19/14 3:32 PM) UA Protein Negative [Negative] (12/19/14 3:32 PM) UA Glucose Negative [Negative] (12/19/14 3:32 PM) UA Ketones Negative [Negative] (12/19/14 3:32 PM) UA Urobilinogen 0.2 mg/dL [<1.0 mg/dL] (12/19/14 3:32 PM) UA Bili [Negative] Negative (12/19/14 3:32 PM) UA Blood [Negative] Negative (12/19/14 3:32 PM) UA Spec Grav 1.006 [1.003-1.030] (12/19/14 3:32 PM) Type Clean Catch (12/19/14 3:32 PM) Immunizations Vaccine Date Refusal Reason tetanus/diphth/pertuss (Tdap) adult/adol 08/30/14 influenza virus vaccine, inactivated 08/30/14 measles/mumps/rubella virus vaccine 05/09/06 tetanus-diphth toxoids (Td) adult/adol 11/10/94 Procedures Procedure Date Related Diagnosis Body Site bunion corrective surgery Hernia repair Social History Social History Type Response Smoking Status Never smoker Assessment and Plan No data available for this section
--- OUTSIDE RECORDS SUMMARY | 2017-03-14 07:00 | XMS REPORT | Referral Summary ---
Author Author [facility] Organization [facility] Address Unknown Phone Unavailable Care Team Providers Care Camp Counselor Name Role Phone Helena Gutierrez Primary Care Physician [phone] Encounter [facility] Date(s): 06/05/15 - 06/05/15 [facility] [place], Rheumatology [address] [place] [address] ALINA Jones [id number] Discharge Diagnosis: Undifferentiated connective tissue disease Discharge [...] food., # 60 tabs, 5 Refill(s), Pharmacy: [facility] #[id number], 1 tabs Oral BID,Instr:with food. Start Date: [...]
--- OUTSIDE RECORDS SUMMARY | 2017-03-14 07:00 | XMS REPORT | Referral Summary ---
Author Author [facility] Organization [facility] Address Unknown Phone Unavailable Care Team Providers Care Embosser Apprentice Name Role Phone Helena Gutierrez Primary Care Physician [phone] Encounter [facility] [id number] Date(s): 06/17/16 - 06/17/16 [facility], Rheumatology [address] [place] [address] ALINA Jones [id number] Discharge Diagnosis: Undifferentiated connective tissue disease Discharge Disposition: 01-Home or Self Care Attending Physician: Ariela Pearson MD Admitting Physician: Ariela Pearson MD Referring Physician: Uche Gutierrez MD Vital Signs Most recent to 1 oldest [Reference Range]: Peripheral Pulse 65 bpm Rate [60-100 bpm] (06/17/16 11:00 AM) Respiratory Rate 16 br/min [14-20 br/min] (06/17/16 11:00 AM) Blood Pressure 153/82 mmHg [90-140/60-90 mmHg] *HI* (06/17/16 11:00 AM) Problem List Condition Effective Dates Status Health Status Informant Obesity(Confirmed) Active patient Sinus Active infections(Confirmed ) Undifferentiated Active connective tissue disease(Confirmed) Allergies, Adverse Reactions, Alerts No Known Medication Allergies Medications Mobic 7.5 mg oral tablet 7.5 mg 1 tabs, Oral, BID, with food., # 60 tabs, 5 Refill(s), Pharmacy: [id number], 1 tabs Oral BID,Instr:with food. Start Date: 06/17/16 Status: Ordered Results No data available for [...] Visit Note Author: Ariela Pearson MD Date: 06/17/16 Assessment/Plan 1.Undifferentiated connective tissue disease She is overall doing well. We will continue meloxicam. Discussed that sheistaking a full dose of meloxicamwhen she takes 15 mg in total daily. I suggested that she can take acetaminophen if needed. She declines trying hydroxychloroquine at this time. Follow-up6 months or sooner if needed.
--- OUTSIDE RECORDS SUMMARY | 2017-03-14 07:00 | XMS REPORT | Continuity of Care Document ---
Author Author [facility] Organization [facility] Address Unknown Phone Unavailable Allergies Medications Problems Procedures Results Encounters ACCT No. Visit Date/Time Discharge Status Pt. Type Provider Facility Loc./Unit Complaint [id number] 02/22/2014 13:01:00 02/22/2014 23 :59:59 CLS Outpatient [id number] 02/15/2014 14:54:00 02/15/2014 23 :59:59 CLS Outpatient [id number] 11/30/2013 10:22:00 11/30/2013 23 :59:59 CLS Outpatient
--- OUTSIDE RECORDS SUMMARY | 2017-03-14 07:00 | XMS REPORT | Continuity of Care Document ---
Author Author Conrado COX, Geoffrey THOMAS Organization Ambulatory Address [address] [place] [address] [place] [address] Phone Care Team Providers Care Permaculture Designer Name Role Phone Uche Gutierrez PP Unavailable Payers Payer name Insurance type Covered constitution party ID Authorization(s) Unknown Problems Condition Effective Dates (start - stop) Clinical Status Sinusitis, Acute - *Acute Upper Respiratory Infection, Acute - *Acute Perimenopause - *Stable Well woman exam with routine gynecological exam - *Stable Unspecified sinusitis (chronic) - *Chronic Cough - *Chronic Sinusitis - *Chronic Sinusitis, Acute - *Acute Allergic rhinitis, cause unspecified - Acute Exacerbation Chronic rhinitis - *Chronic Family History Family Member Diagnosis Age At Onset Status Unknown Social History Social History Element Description Quantity Unknown Allergies, Adverse Reactions, Alerts Substance Reaction Severity Status Unknown Medications Medication Instructions Dosage Effective Dates (start - stop) Status azithromycin 250 mg tablet take 2 tablet (500MG) by oral route every day for 1 day then 1 tablet (250 mg) by oral route once daily for 4 days 500 MG - Active Immunizations Vaccine Date Status Comments MMR completed - Completed reason: source unspecified Td (adult) completed - Completed reason: source unspecified Results Test Name Date and Time Measure Units Reference Range Abnormal Flag Comments Unknown Vital Signs Date / Time: Height Weight Pulse Rate Blood Pressure Temperature /10:25:00 61.00 in 170.00 lbs 124/86 mm[Hg] 97.6 F Procedures Procedure Date Unknown Encounters Encounter Location Date Patient Visit [facility] FM Patient Visit [facility] New OB Patient Visit [facility] E[facility] Patient Visit [facility] Patient Visit [facility] Patient Visit Patient Visit [facility] Advance Directives Directive Effective Date Unknown
--- OUTSIDE RECORDS SUMMARY | 2017-03-14 07:00 | XMS REPORT | Referral Summary ---
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 #[id number], 1 tabs Oral BID,Instr:with food. Start Date: [...]
--- OUTSIDE RECORDS SUMMARY | 2017-03-14 07:01 | XMS REPORT | Referral Summary ---
Author Author [facility] Organization [facility] Address Unknown Phone Unavailable Care Team Providers Care Special Education Secretary Name Role Phone Helena Gutierrez Primary Care Physician [phone] Encounter [facility] Date(s): 06/05/15 - 06/05/15 [facility], Rheumatology [address] [place] [address] ALINA Jones [id number] Discharge Diagnosis: Undifferentiated connective tissue [...] food., # 60 tabs, 5 Refill(s), Pharmacy: [facility] #[id number], 1 tabs Oral BID,Instr:with food. Start Date: [...]
[2017-03-14 07:07] VITALS: BP 142/89; PULSE 64; RESP 14; TEMP 98.3; O2SAT 95; Ht 152.4 cm; Wt 73.9 kg
--- NOTE | 2017-03-14 07:24 | ANESPREOP ---
Anesthesia Record Date and Time DATE: 03/14/17 TIME: 07:21 Pre-Op Diagnosis family hx of colon ca Proposed Surgical Procedure COLONOSCOPY Allergies: Coded Allergies: No Known Drug Allergies (Verified Allergy, Unknown, 03/14/17) Ht/Wt/BMI Height: 5 ' 0.00 " Weight: 73.900 kg BMI: 31.8 kg/m2 Vital Signs Date Time Temp Pulse Resp B/P Pulse Ox O2 Delivery O2 Flow Rate FiO2 03/14/17 07:07 98.3 64 14 142/89 95 Room Air Medications Inpatient Medications Current Medications Medications (Trade) Dose Ordered Sig/Donavon Start Time Stop Time Status Last Admin Dose Admin Lactated Ringer's (Lactated Ringers) 1,000 ml @ 30 mls/hr Q24H 03/11/17 07:00 Cyclobenzaprine HCl (Cyclobenzaprine HCl) 5 Mg Tablet, 1 TAB PO BID, (Reported) MAY CAUSE DROWSINESS OR DIZZINESS Meloxicam (Meloxicam) 7.5 Mg Tablet, 7.5 MG PO BID, (Reported) Tramadol HCl (Tramadol HCl) 50 Mg Tablet, 50 MG PO BID, (Reported) Currently on Beta Salvatore: No Medical/Surgical History Smoking Status: Never smoker Has pt. smoked today?: No Use Chewing Tobacco?: No Second Hand Exposure: No Substance Use Type: does not use Substance last used: unknown Alcohol Intake: none Last Drink: unknown Past Surgical History Orthopedic Surgeries: Abdominal Surgeries: Yes - HERNIA REPAIR PER H&P Genitourinary Surgeries: Cardiac Surgeries: Endocrine Surgeries: Reproductive Surgeries: Neurological Surgeries: Ear Surgeries: Nose Surgeries: Throat Surgeries: Other Surgeries: Yes - BUNIONECTOMY PER H&P Anesthesia Adverse Reactions: FOUND none Family Hx of Anesthesia Advers: none Hx of Motion Sickness: No Pertinent Findings EKG Rhythm: Sinus Rhythm Physical Exam Respiratory: Bilat breath sounds equal, Lungs clear Cardiovascular: FOUND Regular rate, rhythm, FOUND No murmur Airway Assessment Mallampati Score: II TMD: 3 Fingerbreadths Neck Extension: Good Overall Assessment: No Airway Concerns ASA: 2 Plan Anesthesia Plan: TIVA Discussion Discussed risks/options/alternatives of anesthesia and questions answered. Patient consents. Nursing pain assessment noted. Attestation Statement Prior to the delivery of any anesthetic medication, I examined the patient, developed the plan, obtained the patient's consent and discussed the risk and benefits of the procedure with the patient/guardian. FERNANDO SLOAN CRNA Mar 14, 2017 07:24
[2017-03-14] MEDS ORDERED: LIDOCAINE 1% (10mg/ml) 2ml SDV ONE (09:01)
[2017-03-14] MEDS ORDERED: PROPOFOL 500mg 50 ML IV ONE (09:01)
[2017-03-14 09:23] VITALS: BP 103/58; PULSE 63; RESP 12; TEMP 97.1; O2SAT 96
[2017-03-14 09:35] VITALS: BP 128/79; PULSE 65; RESP 14; O2SAT 98
[2017-03-14 09:50] VITALS: BP 124/69; PULSE 61; RESP 18; TEMP 97.2; O2SAT 97
--- NOTE | 2017-03-14 10:08 | ANESPO ---
Post-Op Note Date 03/14/17 Time: 10:07 Status Pt Participated in Evaluation: Pt participated in person Vital Signs Date Time Temp Pulse Resp B/P Pulse Ox O2 Delivery O2 Flow Rate FiO2 03/14/17 09:23 97.1 63 12 103/58 96 Room Air Respiratory Function: Airway patent, Regular respirations Cardiovascular Function: Regular pulse Mental Status: Alert/oriented Pain Level Intensity: 0 Unable to Assess Pain Due To: Medicated/Sleeping Hydration: Taking po fluids Complications during Recovery None apparent Post-Anesthesia Notes pt. camilla. well Follow-Up Instructions Instructions Per Surgeon Additional Information none FERNANDO SLOAN CRNA Mar 14, 2017 10:07
--- NOTE | 2017-03-14 12:38 | OPNOTEF ---
DATE OF PROCEDURE 03/14/2017 SURGEON Jaquan Thomas MD PREOPERATIVE DIAGNOSIS Colorectal cancer surveillance. POSTOPERATIVE DIAGNOSIS Same, normal colonoscopy. PROCEDURE Colonoscopy. ANESTHESIA TIVA. BRIEF HISTORY/INDICATIONS Mrs. Pollard is a 51-year-old female who presents today to [facility] to undergo a colonoscopy to serve as a portion of her overall colorectal cancer surveillance. For completeness please refer to notes included in the patient's chart. FINDINGS Upon colonoscopy, there was no evidence for angiodysplastic lesions, polyps, diverticula or mely malignancies. DESCRIPTION OF PROCEDURE After informed consent was obtained, the patient was brought to the endoscopy suite and placed on the table in left lateral decubitus position. The patient subsequently underwent total intravenous anesthesia by the nurse public health service officer per my request. A formal timeout was then performed. Next, a digital rectal examination was performed. Normal sphincter tone. No rectal masses were appreciated. An Olympus colonoscope was inserted in the anus and advanced with the lumen of the colon under direct visualization at all times until the cecum was ascertained. Triangulation of the tenia coli, ileocecal valve and appendiceal lumen were all visualized. The scope was then slowly withdrawn, again while maintaining visualization of the lumen at all times. As stated above, the entire colon was without evidence for angiodysplastic lesions, polyps, diverticula or mely malignancies. The scope continued to be withdrawn until it was brought forth back into the rectal vault. A J-maneuver was then performed. No worrisome perianal pathology was noted. The scope was allowed to straighten and was withdrawn through the anal verge. The patient tolerated the procedure without difficulty and was sent back to the preop area in stable condition. Secondary to the absence of findings upon this colonoscopy, the patient will not need to undergo a repeat colonoscopy until ten years from now unless new indications should arise. CHRISTINA
== END 2017-03-14 10:14 | disposition home or self-care (01) ==
LOC: SCU 06:55
PROVIDERS: ATTEND Surgery
DX: Z12.11 Encounter for screening for malignant neoplasm of colon (principal); K59.00 Constipation, unspecified; G89.29 Other chronic pain; M54.5 Low back pain; Z79.1 Long term (current) use of non-steroidal anti-inflammatories (NSAID); Z79.899 Other long term (current) drug therapy
CPT/HCPCS: 45378; J2704; J7120